=== PATIENT | male | born 1985 | race Caucasian/White ===

== ENCOUNTER → 2018-08-16 | Outpatient (REF) ==
[~2018-08-16] MED LIST: COLACE 100100 MG/CAP PO; MOTRIN 600600 MG/TAB PO; NORCO 325 MG-51 TAB PO
== END ==
LOC: ZLAB.WCH 17:57
DX: Z01.89 Encounter for other specified special examinations (principal)

== ENCOUNTER → 2020-12-28 | Outpatient (CLI) | payer BC | LOC: COL.RAD 12-13 09:45 | DX: R10.11 Right upper quadrant pain (principal) ==